=== PATIENT | male | born 2000 | race Two or more races ===

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

== ENCOUNTER 2022-07-28 14:39 | Emergency (ER) | payer BC ==
[~2022-07-28] VITALS: Ht 175.3 cm; Wt 59.0 kg
[~2022-07-28 14:39] MED LIST changes: +IBUP-1957 PO; +SUMA100T16 PO
[2022-07-28 15:00] VITALS: BP 127/70
[2022-07-28] MEDS ORDERED: METH750T3 PO (15:27)
--- NOTE | 2022-07-28 15:47 | NUR ---
Patient discharged to home in stable condition. Written and verbal after care instructions given. Patient verbalizes understanding of instruction.
== END 2022-07-28 15:47 | disposition home or self-care (01) ==
LOC: ER 14:55
DX: M54.6 Pain in thoracic spine (principal); M62.830 Muscle spasm of back; Z79.899 Other long term (current) drug therapy; V49.59XA Passenger injured in collision with other motor vehicles in traffic accident, initial encounter; Y93.89 Activity, other specified; Y92.89 Other specified places as the place of occurrence of the external cause; Y99.8 Other external cause status

== ENCOUNTER 2022-09-02 12:27 | Emergency (ER) | payer BC ==
[~2022-09-02] VITALS: Ht 177.8 cm; Wt 59.0 kg
[~2022-09-02 12:27] MED LIST changes: +METH750T3 PO
[2022-09-02] MEDS ORDERED: NEOM10DR11 LEFT EAR (12:42)
--- NOTE | 2022-09-02 12:42 | NUR ---
left ear pain x 3 days
--- NOTE | 2022-09-02 12:42 | NUR ---
seen by Dr. Delaney at bedside
--- NOTE | 2022-09-02 12:44 | NUR ---
Patient discharged to home in stable condition. Written and verbal after care instructions given. Patient verbalizes understanding of instruction.
[2022-09-02 12:45] VITALS: BP 112/89
== END 2022-09-02 12:46 | disposition home or self-care (01) ==
LOC: ER 12:35
DX: H61.22 Impacted cerumen, left ear (principal); Z79.899 Other long term (current) drug therapy

== ENCOUNTER 2023-12-06 09:18 | Emergency (ER) | payer BC ==
[~2023-12-06] VITALS: Ht 175.3 cm; Wt 59.0 kg
[~2023-12-06 09:18] MED LIST changes: +NEOM10DR11 LEFT EAR
[2023-12-06 10:08] VITALS: BP 110/75; TEMP 98; O2SAT 97
== END 2023-12-06 10:09 | disposition home or self-care (01) ==
LOC: ER 09:20
DX: S83.92XA Sprain of unspecified site of left knee, initial encounter (principal); X58.XXXA Exposure to other specified factors, initial encounter; Y93.66 Activity, soccer; Y92.89 Other specified places as the place of occurrence of the external cause; Y99.8 Other external cause status
CPT/HCPCS: 73564-TC